=== PATIENT | male | born 1975 | race Caucasian/White ===

== ENCOUNTER 2018-04-07 18:29 | Emergency (ER) | payer SELFPAY ==
[~2018-04-07] VITALS: Ht 172.7 cm; Wt 68.0 kg
[2018-04-07 18:32] VITALS: BP 110/74
== END 2018-04-07 19:04 | disposition left against medical advice (07) ==
LOC: ER 18:29
DX: Z53.21 Procedure and treatment not carried out due to patient leaving prior to being seen by health care provider (principal)

== ENCOUNTER 2018-06-02 21:36 | Emergency (ER) | payer MEDICAID | END 2018-06-02 23:04 | disposition left against medical advice (07) | LOC: ER 21:51 | DX: Z53.21 Procedure and treatment not carried out due to patient leaving prior to being seen by health care provider (principal) ==

== ENCOUNTER 2019-01-14 14:21 | Emergency (ER) | payer MEDICAID ==
[~2019-01-14] VITALS: Ht 177.8 cm; Wt 65.0 kg
[2019-01-14 16:57] VITALS: BP 121/84
== END 2019-01-14 17:17 | disposition home or self-care (01) ==
LOC: ER 14:21
DX: S97.82XA Crushing injury of left foot, initial encounter (principal); X58.XXXA Exposure to other specified factors, initial encounter; Y93.89 Activity, other specified; Y92.89 Other specified places as the place of occurrence of the external cause; Y99.8 Other external cause status
CPT/HCPCS: 73630; 99283

== ENCOUNTER 2019-03-06 09:04 | Emergency (ER) | payer SELFPAY ==
[~2019-03-06] VITALS: Ht 180.3 cm; Wt 66.0 kg
[2019-03-06] MEDS ORDERED: IBUPROFEN 400MG TABLET PO ONE (10:15)
[2019-03-06] MEDS ORDERED: ACETAMINOPHEN 325MG TABLET PO ONE (10:30)
[2019-03-06] MEDS ORDERED: TRAMADOL 50MG TABLET PO ONE (10:30)
[2019-03-06 11:28] VITALS: BP 111/68
== END 2019-03-06 11:29 | disposition home or self-care (01) ==
LOC: ER 09:48
DX: S29.9XXA Unspecified injury of thorax, initial encounter (principal); K76.9 Liver disease, unspecified; F17.200 Nicotine dependence, unspecified, uncomplicated; W18.39XA Other fall on same level, initial encounter; Y93.89 Activity, other specified; Y92.89 Other specified places as the place of occurrence of the external cause; Y99.8 Other external cause status
CPT/HCPCS: 71045; 99283

== ENCOUNTER 2019-08-09 14:51 | Emergency (ER) | payer MEDICAID ==
[~2019-08-09] VITALS: Ht 172.7 cm; Wt 66.0 kg
[2019-08-09 15:35] VITALS: BP 119/75
== END 2019-08-09 15:36 | disposition home or self-care (01) ==
LOC: ER 14:51
DX: S01.81XD Laceration without foreign body of other part of head, subsequent encounter (principal); X58.XXXD Exposure to other specified factors, subsequent encounter
CPT/HCPCS: 99281

== ENCOUNTER 2019-09-24 23:34 | Emergency (ER) | payer MEDICAID ==
[~2019-09-24] VITALS: Ht 180.3 cm; Wt 67.0 kg
[2019-09-24 23:47] VITALS: BP 112/80
[2019-09-25] MEDS ORDERED: AZITHROMYCIN 500 MG TABLET PO ONE (00:45)
[2019-09-25] MEDS ORDERED: CEFTRIAXONE SODIUM 250 MG/VIAL IM ONE (00:45)
[2019-09-25] MEDS ORDERED: LIDOCAINE HCL 1% 20ML VIAL (Pyxis) INJ INFIL ONE (00:45)
[2019-09-25 01:11] LABS: CLARITY URINE CLEAR (CLEAR); COLOR URINE YELLOW (YELLOW); KETONES URINE NEGATIVE (NEGATIVE); LEUKOCYTE ESTERASE URINE TRACE (NEGATIVE); NITRITE URINE NEGATIVE (NEGATIVE); OCCULT BLOOD URINE NEGATIVE (NEGATIVE); PROTEIN URINE NEGATIVE (NEGATIVE); SPECIFIC GRAVITY URINE 1.018 (1.005-1.030); UROBILINOGEN URINE 0.2 E.U./dL (0.2-1.0)
== END 2019-09-25 03:09 | disposition left against medical advice (07) ==
LOC: ER 23:34
DX: N39.0 Urinary tract infection, site not specified (principal); H10.9 Unspecified conjunctivitis; Z98.890 Other specified postprocedural states
CPT/HCPCS: 81003; 99283

== ENCOUNTER 2020-07-12 18:46 | Emergency (ER) | payer SELFPAY ==
[~2020-07-12] VITALS: Ht 180.3 cm; Wt 73.0 kg
[2020-07-12 19:21] VITALS: BP 123/91
[2020-07-12 20:01] LABS: BASOPHILS % 0.9 % (0.0-2.0); EOSINOPHILS % 2.2 % (0.0-5.0); HEMOGLOBIN. 15.8 g/dL (14.0-18.0); LYMPHOCYTES % 25.4 % (20.0-50.0); MEAN CORPUSCULAR HEMOGLOBIN 33.8 pg (28.0-32.0); MEAN CORPUSCULAR VOLUME 98.5 fL (80.0-94.0); MEAN PLATELET VOLUME 7.6 fl (7.4-10.4); MONOCYTES % 14.9 % (2.0-8.0); NEUTROPHILS % 56.6 % (40.0-76.0); PLATELET 174 x1000/uL (130-400); RED BLOOD CELL COUNT 4.67 mill/uL (4.7-6.1); RED CELL DISTRIBUTION WIDTH 16.6 % (11.6-14.6)
[2020-07-12 20:04] LABS: CHLORIDE 108 mEq/L (98-107)
== END 2020-07-12 20:47 | disposition home or self-care (01) ==
LOC: ER 18:46
DX: T75.4XXA Electrocution, initial encounter (principal); F17.290 Nicotine dependence, other tobacco product, uncomplicated; Z98.890 Other specified postprocedural states; W86.1XXA Exposure to industrial wiring, appliances and electrical machinery, initial encounter; Y93.89 Activity, other specified; Y92.89 Other specified places as the place of occurrence of the external cause; Y99.8 Other external cause status
CPT/HCPCS: 36415; 71045; 80053; 83880; 84484; 85025; 93005; 99285; 99406

== ENCOUNTER 2021-01-29 07:35 | Emergency (ER) | payer OTHER ==
[~2021-01-29] VITALS: Ht 177.8 cm; Wt 78.0 kg
[2021-01-29] MEDS ORDERED: FOLIC ACID 1 MG, THIAMINE HCL 100 MG, MVI, ADULT NO.1 10 ML in DEXTROSE 5% WATER 1,000 ML IV ONE (08:30)
[2021-01-29] MEDS ORDERED: SODIUM CHLORIDE 0.9% 1,000 ML IV ONE (08:30)
[2021-01-29] MEDS ORDERED: LORAZEPAM 2MG/ML CPJ IV ONE (08:30)
[2021-01-29 08:44] LABS: EOSINOPHILS % 0.1 % (0.0-5.0); HEMATOCRIT. 42.2 % (42.0-52.0); HEMOGLOBIN. 14.1 g/dL (14.0-18.0); MEAN CORPUSCULAR HEMOGLOBIN 34.3 pg (28.0-32.0); MEAN CORPUSCULAR VOLUME 102.5 fL (80.0-94.0); MEAN PLATELET VOLUME 7.7 fl (7.4-10.4); MONOCYTES % 9.9 % (2.0-8.0); PLATELET 148 x1000/uL (130-400); RED BLOOD CELL COUNT 4.11 mill/uL (4.7-6.1); RED CELL DISTRIBUTION WIDTH 15.1 % (11.6-14.6)
[2021-01-29 08:50] LABS: CHLORIDE 97 mEq/L (98-107)
[2021-01-29 08:54] LABS: ETHANOL BLOOD 25 mg/dL
[2021-01-29] MEDS ORDERED: MAGNESIUM OXIDE 400MG TABLET PO STA (09:27)
[2021-01-29] MEDS ORDERED: POTASSIUM CHLORIDE 20MEQ TABLET SR PO ONE (09:30)
[2021-01-29 10:00] VITALS: BP 133/80
== END 2021-01-29 11:31 | disposition left against medical advice (07) ==
LOC: ER 07:52
DX: R55 Syncope and collapse (principal); E87.6 Hypokalemia; F10.239 Alcohol dependence with withdrawal, unspecified; F10.229 Alcohol dependence with intoxication, unspecified; Z98.890 Other specified postprocedural states; Y90.1 Blood alcohol level of 20-39 mg/100 ml
CPT/HCPCS: 36415; 71045; 80053; 80320; 83735; 83880; 84484; 85025; 93005; 96361; 96365; 96375; 99285; J2060; J3411; J3490; J7030; J7070; G0480

== ENCOUNTER 2021-05-16 14:52 | Emergency (ER) | payer MEDICAID, OTHER ==
[~2021-05-16] VITALS: Ht 180.3 cm; Wt 62.0 kg
[2021-05-16 14:53] VITALS: BP 121/83
[2021-05-16] MEDS ORDERED: MORPHINE SULFATE 4 MG/ML CPJ (NOT FOR IM USE) IV STA (16:33)
[2021-05-16] MEDS ORDERED: ONDANSETRON HCL 4MG/2ML INJ IV STA (16:33)
[2021-05-16] MEDS ORDERED: SODIUM CHLORIDE 0.9% 1,000 ML IV ONE (16:45)
[2021-05-16] MEDS ORDERED: CEFTRIAXONE 1 G PREMIX 50 ML IV ONE (17:00)
[2021-05-16] MEDS ORDERED: SODIUM CHLORIDE 0.9% 1000ML BAG (SEPSIS BOLUS) IV ONE (17:00)
[2021-05-16] MEDS ORDERED: AZITHROMYCIN 500MG/250ML 250 ML IV ONE (17:00)
[2021-05-16 17:20] LABS: BASOPHILS % 0.5 % (0.0-2.0); EOSINOPHILS % 1.4 % (0.0-5.0); HEMATOCRIT. 41.4 % (42.0-52.0); LYMPHOCYTES % 19.3 % (20.0-50.0); MEAN CORPUSCULAR HEMOGLOBIN 35.1 pg (28.0-32.0); MEAN CORPUSCULAR VOLUME 104.1 fL (80.0-94.0); MEAN PLATELET VOLUME 7.4 fl (7.4-10.4); MONOCYTES % 9.4 % (2.0-8.0); NEUTROPHILS % 69.4 % (40.0-76.0); PLATELET 312 x1000/uL (130-400); RED BLOOD CELL COUNT 3.98 mill/uL (4.7-6.1)
[2021-05-16 17:24] LABS: CHLORIDE 100 mEq/L (98-107)
[2021-05-16 17:28] LABS: D-DIMER 0.44 mg/L FEU (<0.50); PARTIAL THROMBOPLASTIN TIME 31.8 sec (23.4-31.0); PROTHROMBIN TIME 10.9 sec (9.6-11.0)
[2021-05-16 17:29] LABS: ETHANOL BLOOD 182 mg/dL
== END 2021-05-16 20:10 | disposition left against medical advice (07) ==
LOC: ER 14:52 → CANBEDREQ 21:11
DX: R07.89 Other chest pain (principal); E87.6 Hypokalemia; R10.13 Epigastric pain; F17.290 Nicotine dependence, other tobacco product, uncomplicated; Z98.890 Other specified postprocedural states
CPT/HCPCS: 36415; 70450; 71045; 74176; 80053; 80320; 83605; 83690; 83880; 84484; 85025; 85379; 85610; 85730; 87040; 93005; 99285; J7030; G0480

== ENCOUNTER 2021-05-17 11:32 | Emergency (ER) | payer MEDICAID ==
[~2021-05-17] VITALS: Ht 180.3 cm; Wt 62.0 kg
[2021-05-17 12:42] LABS: BASOPHILS % 0.6 % (0.0-2.0); EOSINOPHILS % 0.6 % (0.0-5.0); HEMATOCRIT. 38.7 % (42.0-52.0); HEMOGLOBIN. 13.7 g/dL (14.0-18.0); LYMPHOCYTES % 13.6 % (20.0-50.0); MEAN CORPUSCULAR HEMOGLOBIN 36.7 pg (28.0-32.0); MEAN CORPUSCULAR VOLUME 103.5 fL (80.0-94.0); MEAN PLATELET VOLUME 7.7 fl (7.4-10.4); MONOCYTES % 7.1 % (2.0-8.0); NEUTROPHILS % 78.1 % (40.0-76.0); PLATELET 246 x1000/uL (130-400); RED BLOOD CELL COUNT 3.74 mill/uL (4.7-6.1); RED CELL DISTRIBUTION WIDTH 17.1 % (11.6-14.6)
[2021-05-17 12:46] LABS: CHLORIDE 104 mEq/L (98-107)
[2021-05-17 12:51] LABS: ETHANOL BLOOD 119 mg/dL
[2021-05-17] MEDS ORDERED: CHLORDIAZEPOXIDE 25MG CAPSULE PO ONE (13:00)
[2021-05-17] MEDS ORDERED: POTASSIUM CHLORIDE 20MEQ TABLET SR PO ONE (13:00)
[2021-05-17] MEDS ORDERED: IBUPROFEN 200MG TABLET PO ONE (13:30)
[2021-05-17 14:00] VITALS: BP 124/84
== END 2021-05-17 15:16 | disposition home or self-care (01) ==
LOC: ER 11:32
DX: R07.89 Other chest pain (principal); E87.6 Hypokalemia; Z98.890 Other specified postprocedural states; Z86.59 Personal history of other mental and behavioral disorders
CPT/HCPCS: 36415; 71045; 80053; 80320; 84484; 85025; 93005; 99285; G0480

== ENCOUNTER 2021-06-08 18:08 | Emergency (ER) | payer MEDICAID ==
[~2021-06-08] VITALS: Ht 180.3 cm; Wt 63.8 kg
[2021-06-08 18:21] VITALS: BP 121/88
[2021-06-08 20:06] LABS: BASOPHILS % 0.8 % (0.0-2.0); EOSINOPHILS % 1.5 % (0.0-5.0); HEMOGLOBIN. 14.9 g/dL (14.0-18.0); LYMPHOCYTES % 27.9 % (20.0-50.0); MEAN CORPUSCULAR HEMOGLOBIN 36.6 pg (28.0-32.0); MEAN CORPUSCULAR VOLUME 105.8 fL (80.0-94.0); MEAN PLATELET VOLUME 7.7 fl (7.4-10.4); MONOCYTES % 10.1 % (2.0-8.0); NEUTROPHILS % 59.7 % (40.0-76.0); PLATELET 218 x1000/uL (130-400); RED BLOOD CELL COUNT 4.06 mill/uL (4.7-6.1); RED CELL DISTRIBUTION WIDTH 17.2 % (11.6-14.6)
[2021-06-08 20:15] LABS: CHLORIDE 105 mEq/L (98-107)
[2021-06-08 21:13] LABS: ETHANOL BLOOD 304 mg/dL
== END 2021-06-08 21:00 | disposition left against medical advice (07) ==
LOC: ER 18:14
DX: Z53.21 Procedure and treatment not carried out due to patient leaving prior to being seen by health care provider (principal); R07.89 Other chest pain; M79.602 Pain in left arm
CPT/HCPCS: 36415; 71045; 80053; 80320; 83880; 84484; 85025; 93005; 99285; G0480

== ENCOUNTER 2021-06-21 12:10 | Emergency (ER) | payer MEDICAID ==
[~2021-06-21] VITALS: Ht 180.3 cm; Wt 73.0 kg
[2021-06-21] MEDS ORDERED: MORPHINE SULFATE 4 MG/ML CPJ (NOT FOR IM USE) IV ONE (14:00)
[2021-06-21 14:10] LABS: BASOPHILS % 0.8 % (0.0-2.0); EOSINOPHILS % 0.5 % (0.0-5.0); HEMOGLOBIN. 15.5 g/dL (14.0-18.0); LYMPHOCYTES % 31.2 % (20.0-50.0); MEAN CORPUSCULAR HEMOGLOBIN 36.2 pg (28.0-32.0); MEAN CORPUSCULAR VOLUME 105.1 fL (80.0-94.0); MONOCYTES % 10.7 % (2.0-8.0); NEUTROPHILS % 56.8 % (40.0-76.0); PLATELET 139 x1000/uL (130-400); RED BLOOD CELL COUNT 4.28 mill/uL (4.7-6.1); RED CELL DISTRIBUTION WIDTH 15.8 % (11.6-14.6)
[2021-06-21] MEDS ORDERED: FOLIC ACID 1 MG, THIAMINE HCL 100 MG, MVI, ADULT NO.1 10 ML in DEXTROSE 5% WATER 1,000 ML IV ONE ×4 (14:15)
[2021-06-21 14:17] LABS: CHLORIDE 99 mEq/L (98-107)
[2021-06-21 14:26] LABS: CREATINE KINASE 74 IU/L (39-308)
[2021-06-21 14:38] LABS: ETHANOL BLOOD 374 mg/dL
[2021-06-21] MEDS ORDERED: POTASSIUM CHLORIDE 20MEQ TABLET SR PO NR (15:30)
[2021-06-21] MEDS ORDERED: ONDA4TAB5 MT (15:33)
[2021-06-21] MEDS ORDERED: THIA50TA12 MT (15:33)
[2021-06-21] MEDS ORDERED: IBUP-2029 MT (15:33)
[2021-06-21] MEDS ORDERED: POTA20TA82 MT (15:33)
[2021-06-21] MEDS ORDERED: KETOROLAC 15MG/ML VIAL IV ONE (16:30)
[2021-06-21] MEDS ORDERED: ASPIRIN 325MG EC TABLET PO NR (16:30)
[2021-06-21 18:45] VITALS: BP 142/97
== END 2021-06-21 19:40 | disposition home or self-care (01) ==
LOC: ER 12:10
DX: F10.129 Alcohol abuse with intoxication, unspecified (principal); F17.290 Nicotine dependence, other tobacco product, uncomplicated; E87.6 Hypokalemia; R74.01 Elevation of levels of liver transaminase levels; Z98.890 Other specified postprocedural states; Z86.59 Personal history of other mental and behavioral disorders; Y90.8 Blood alcohol level of 240 mg/100 ml or more
CPT/HCPCS: 36415; 70450; 71045; 80053; 80307; 80320; 80329; 82140; 82550; 83690; 84484; 85025; 93005; 93970; 96365; 96375; 99285; 99406; J1885; J2270; J3411; J3490; J7070; G0480

== ENCOUNTER 2021-06-26 12:04 | Emergency (ER) | payer MEDICAID ==
[~2021-06-26] VITALS: Ht 172.7 cm; Wt 70.0 kg
[~2021-06-26 12:04] MED LIST: IBUP-2029 MT; ONDA4TAB5 MT; POTA20TA82 MT; THIA50TA12 MT
[2021-06-26 12:15] VITALS: BP 105/74
[2021-06-26] MEDS ORDERED: SODIUM CHLORIDE 0.9% 1,000 ML IV ONE (12:30)
== END 2021-06-26 15:34 | disposition left against medical advice (07) ==
LOC: ER 12:04
DX: M79.18 Myalgia, other site (principal); R53.1 Weakness; R00.0 Tachycardia, unspecified
CPT/HCPCS: 93005; 99283; J7030

== ENCOUNTER 2021-06-27 12:21 | Emergency (ER) | payer MEDICAID ==
[~2021-06-27] VITALS: Ht 175.3 cm; Wt 77.0 kg
[2021-06-27 12:27] VITALS: BP 116/67
[2021-06-27] MEDS ORDERED: SODIUM CHLORIDE 0.9% 1,000 ML IV ONE (13:30)
[2021-06-27 13:49] LABS: BASOPHILS % 0.6 % (0.0-2.0); EOSINOPHILS % 0.2 % (0.0-5.0); HEMATOCRIT. 38.1 % (42.0-52.0); HEMOGLOBIN. 13.3 g/dL (14.0-18.0); LYMPHOCYTES % 20.9 % (20.0-50.0); MEAN CORPUSCULAR HEMOGLOBIN 36.5 pg (28.0-32.0); MEAN CORPUSCULAR VOLUME 104.8 fL (80.0-94.0); MEAN PLATELET VOLUME 7.7 fl (7.4-10.4); MONOCYTES % 11.6 % (2.0-8.0); NEUTROPHILS % 66.7 % (40.0-76.0); PLATELET 83 x1000/uL (130-400); RED BLOOD CELL COUNT 3.63 mill/uL (4.7-6.1); RED CELL DISTRIBUTION WIDTH 15.9 % (11.6-14.6)
[2021-06-27 13:55] LABS: CHLORIDE 107 mEq/L (98-107)
[2021-06-27 14:09] LABS: ETHANOL BLOOD 369 mg/dL
[2021-06-27] MEDS ORDERED: KETOROLAC 30MG/ML VIAL IM ONE (14:15)
[2021-06-27] MEDS ORDERED: POTASSIUM-SODIUM PHOSPHATE POWDER PACKET PO ONE (15:00)
== END 2021-06-27 15:09 | disposition left against medical advice (07) ==
LOC: ER 12:21
DX: F10.229 Alcohol dependence with intoxication, unspecified (principal); D69.6 Thrombocytopenia, unspecified; E87.6 Hypokalemia; Y90.8 Blood alcohol level of 240 mg/100 ml or more; G40.909 Epilepsy, unspecified, not intractable, without status epilepticus
CPT/HCPCS: 36415; 80053; 80320; 84484; 85025; 93005; 96360; 99284; J7030; Z7610; G0480

== ENCOUNTER 2021-06-27 21:00 | Emergency (ER) | payer MEDICAID ==
[~2021-06-27] VITALS: Ht 180.3 cm; Wt 64.0 kg
[2021-06-27 23:45] LABS: BASOPHILS % 0.6 % (0.0-2.0); EOSINOPHILS % 0.6 % (0.0-5.0); HEMOGLOBIN. 12.8 g/dL (14.0-18.0); LYMPHOCYTES % 33.5 % (20.0-50.0); MEAN CORPUSCULAR HEMOGLOBIN 36.5 pg (28.0-32.0); MEAN CORPUSCULAR VOLUME 105.7 fL (80.0-94.0); MEAN PLATELET VOLUME 8.4 fl (7.4-10.4); MONOCYTES % 14.8 % (2.0-8.0); NEUTROPHILS % 50.5 % (40.0-76.0); PLATELET 79 x1000/uL (130-400); RED CELL DISTRIBUTION WIDTH 15.8 % (11.6-14.6)
[2021-06-27 23:53] LABS: CHLORIDE 105 mEq/L (98-107)
[2021-06-28] MEDS ORDERED: FOLIC ACID 1 MG, THIAMINE HCL 100 MG, MVI, ADULT NO.1 10 ML in DEXTROSE 5% WATER 1,000 ML IV ONE ×4 (00:30)
[2021-06-28] MEDS ORDERED: POTASSIUM CHLORIDE 20MEQ TABLET SR PO SCH (00:30)
[2021-06-28] MEDS ORDERED: IBUPROFEN 400MG TABLET PO SCH (00:30)
[2021-06-28] MEDS ORDERED: ACETAMINOPHEN 325MG TABLET PO SCH (00:30)
[2021-06-28] MEDS ORDERED: MAGNESIUM 2 G PREMIX 50 ML IV SCH (01:00)
[2021-06-28] MEDS ORDERED: FOLIC ACID 1 MG, THIAMINE HCL 100 MG, MVI, ADULT NO.1 10 ML in DEXTROSE 5% WATER 1,000 ML IV SCH ×4 (02:00)
[2021-06-28] MEDS: KCL 20MEQ/100ML PREMIX 100 ML IV SCH ×2 (02:58→03:13)
[2021-06-28 04:00] VITALS: BP 138/98
[2021-06-29] MEDS ORDERED: MELO-104 MT (12:31)
[2021-07-01] MEDS ORDERED: POTASSIUM CHLORIDE 20MEQ TABLET SR PO NR (23:00)
== END 2021-06-28 04:59 | disposition home or self-care (01) ==
LOC: ER 21:00
DX: E87.6 Hypokalemia (principal); D64.9 Anemia, unspecified; H53.8 Other visual disturbances
CPT/HCPCS: 36415; 71045; 73610; 80053; 84484; 85025; 96365; 96367; 96368; 99285; J3411; J3475; J3480; J3490; J7070

== ENCOUNTER 2021-06-29 11:55 | Emergency (ER) | payer MEDICAID ==
[~2021-06-29] VITALS: Ht 180.3 cm; Wt 61.0 kg
[2021-06-29 11:58] VITALS: BP 100/71
[2021-06-29] MEDS ORDERED: MELOXICAM 7.5MG TABLET PO ONE (12:30)
[2021-06-29] MEDS ORDERED: MELO-104 MT (12:31)
== END 2021-06-29 12:42 | disposition home or self-care (01) ==
LOC: ER 12:10
DX: G89.29 Other chronic pain (principal); M79.605 Pain in left leg; M79.604 Pain in right leg
CPT/HCPCS: 99283

== ENCOUNTER 2021-06-30 14:32 | Emergency (ER) | payer MEDICAID ==
[~2021-06-30] VITALS: Ht 175.3 cm; Wt 69.0 kg
[~2021-06-30 14:32] MED LIST changes: +MELO-104 MT
[2021-06-30] MEDS ORDERED: IBUPROFEN 600MG TABLET PO STA (14:46)
[2021-06-30 15:40] VITALS: BP 110/65
== END 2021-06-30 16:16 | disposition left against medical advice (07) ==
LOC: ER 14:38
DX: R53.1 Weakness (principal); R42 Dizziness and giddiness; F10.229 Alcohol dependence with intoxication, unspecified; Y90.0 Blood alcohol level of less than 20 mg/100 ml
CPT/HCPCS: 93005; 99283

== ENCOUNTER 2021-07-01 14:57 | Emergency (ER) | payer MEDICAID ==
[~2021-07-01] VITALS: Ht 180.3 cm; Wt 66.0 kg
[2021-07-01 15:07] VITALS: BP 114/77
[2021-07-01 15:35] LABS: BASOPHILS % 0.5 % (0.0-2.0); EOSINOPHILS % 0.3 % (0.0-5.0); HEMATOCRIT. 38.5 % (42.0-52.0); HEMOGLOBIN. 13.4 g/dL (14.0-18.0); LYMPHOCYTES % 20.7 % (20.0-50.0); MEAN CORPUSCULAR HEMOGLOBIN 36.9 pg (28.0-32.0); MEAN CORPUSCULAR VOLUME 106.1 fL (80.0-94.0); NEUTROPHILS % 66.5 % (40.0-76.0); PLATELET 96 x1000/uL (130-400); RED BLOOD CELL COUNT 3.63 mill/uL (4.7-6.1); RED CELL DISTRIBUTION WIDTH 15.6 % (11.6-14.6)
[2021-07-01 15:44] LABS: CHLORIDE 102 mEq/L (98-107)
[2021-07-01] MEDS ORDERED: MAGNESIUM 2 G PREMIX 50 ML IV ONE (16:00)
[2021-07-01] MEDS ORDERED: POTASSIUM CHLORIDE 20MEQ TABLET SR PO ONE (16:00)
[2021-07-01] MEDS ORDERED: KCL 10MEQ/50ML PREMIX 100 ML IV SCH (16:00)
[2021-07-01] MEDS ORDERED: KCL 20MEQ/100ML PREMIX 100 ML IV NR (16:30)
== END 2021-07-01 19:02 | disposition left against medical advice (07) ==
LOC: ER 14:57
DX: G89.29 Other chronic pain (principal); M79.605 Pain in left leg; M79.604 Pain in right leg; E87.6 Hypokalemia; D69.6 Thrombocytopenia, unspecified; R74.01 Elevation of levels of liver transaminase levels; F10.20 Alcohol dependence, uncomplicated; Y90.9 Presence of alcohol in blood, level not specified; D64.9 Anemia, unspecified
CPT/HCPCS: 36415; 80053; 85025; 93005; 99284; J3480

== ENCOUNTER 2021-07-01 22:24 | Emergency (ER) | payer MEDICAID ==
[~2021-07-01] VITALS: Ht 177.8 cm; Wt 77.0 kg
[2021-07-01 22:28] VITALS: BP 110/70
== END 2021-07-02 01:33 | disposition left against medical advice (07) ==
LOC: ER 22:24
DX: M79.604 Pain in right leg (principal); M79.605 Pain in left leg; F10.229 Alcohol dependence with intoxication, unspecified; Y90.0 Blood alcohol level of less than 20 mg/100 ml
CPT/HCPCS: 99283

== ENCOUNTER 2021-07-06 15:55 | Emergency (ER) | payer MEDICAID | END 2021-07-06 16:35 | disposition left against medical advice (07) | LOC: ER 15:59 | DX: Z53.21 Procedure and treatment not carried out due to patient leaving prior to being seen by health care provider (principal) ==

== ENCOUNTER 2021-07-18 01:15 | Emergency (ER) | payer MEDICAID ==
[~2021-07-18] VITALS: Ht 182.9 cm; Wt 66.0 kg
[2021-07-18 01:19] VITALS: BP 129/93
== END 2021-07-18 03:42 | disposition left against medical advice (07) ==
LOC: ER 01:15
DX: Z53.21 Procedure and treatment not carried out due to patient leaving prior to being seen by health care provider (principal)

== ENCOUNTER 2021-08-18 23:33 | Emergency (ER) | payer MEDICAID ==
[~2021-08-18] VITALS: Ht 177.8 cm; Wt 68.0 kg
[~2021-08-18 23:33] MED LIST changes: +ACET650T37 PO; +FOLI-43 PO; +FURO20TA4 PO; +GABA-532 PO; +HYDR-4009 MT; +LACT10SO7 PO; +PANT40TA51 PO; +PRED15SO23 PO; +SPIR25TA6 PO; +THIA100T88 PO
[2021-08-19] MEDS ORDERED: SODIUM CHLORIDE 0.9% 1000ML BAG (SEPSIS BOLUS) IV ONE
[2021-08-19 00:16] LABS: BASOPHILS % 0.4 % (0.0-2.0); EOSINOPHILS % 0.2 % (0.0-5.0); HEMOGLOBIN. 9.6 g/dL (14.0-18.0); LYMPHOCYTES % 12.1 % (20.0-50.0); MEAN CORPUSCULAR HEMOGLOBIN 36.6 pg (28.0-32.0); MEAN CORPUSCULAR VOLUME 110.5 fL (80.0-94.0); MEAN PLATELET VOLUME 10.1 fl (7.4-10.4); MONOCYTES % 7.3 % (2.0-8.0); PLATELET 181 x1000/uL (130-400); RED BLOOD CELL COUNT 2.62 mill/uL (4.7-6.1); RED CELL DISTRIBUTION WIDTH 17.4 % (11.6-14.6)
[2021-08-19 00:31] LABS: CHLORIDE 105 mEq/L (98-107)
[2021-08-19] MEDS ORDERED: PIPERACILLIN/TAZ 3.375G PREMIX 50 ML IV ONE (02:00)
[2021-08-19] MEDS ORDERED: MORPHINE SULFATE 4 MG/ML CPJ (NOT FOR IM USE) IV ONE (02:00)
[2021-08-19] MEDS ORDERED: DOXY100T2 MT (02:24)
[2021-08-19 03:10] VITALS: BP 121/78
== END 2021-08-19 03:15 | disposition home or self-care (01) ==
LOC: ER 23:33
DX: J18.9 Pneumonia, unspecified organism (principal); K70.30 Alcoholic cirrhosis of liver without ascites; Z20.822 Contact with and (suspected) exposure to COVID-19; F10.21 Alcohol dependence, in remission; I10 Essential (primary) hypertension; E78.00 Pure hypercholesterolemia, unspecified; Z79.899 Other long term (current) drug therapy
CPT/HCPCS: 36415; 71045; 80053; 83605; 83615; 84145; 84484; 85025; 87040; 87426; 87804; 93005; 96361; 96365; 96375; 99285; C9803; J2270; J2543; J7030

== ENCOUNTER 2021-08-26 20:19 | Inpatient (IN) | payer MEDICAID ==
[~2021-08-26] VITALS: Ht 180.3 cm; Wt 65.0 kg
[~2021-08-26 20:19] MED LIST changes: +ACET-3163 PO; -ACET650T37 PO; +DOXY100T2 MT; +POTA-205 MT; -POTA20TA82 MT
[2021-08-26] MEDS ORDERED: KETOROLAC 30MG/ML VIAL IV STA (22:22)
[2021-08-26 22:43] LABS: BASOPHILS % 0.2 % (0.0-2.0); EOSINOPHILS % 0.5 % (0.0-5.0); HEMOGLOBIN. 10.1 g/dL (14.0-18.0); LYMPHOCYTES % 15.9 % (20.0-50.0); MEAN CORPUSCULAR HEMOGLOBIN 35.5 pg (28.0-32.0); MEAN CORPUSCULAR VOLUME 109.2 fL (80.0-94.0); MEAN PLATELET VOLUME 9.8 fl (7.4-10.4); MONOCYTES % 8.7 % (2.0-8.0); NEUTROPHILS % 74.7 % (40.0-76.0); PLATELET 353 x1000/uL (130-400); RED BLOOD CELL COUNT 2.84 mill/uL (4.7-6.1); RED CELL DISTRIBUTION WIDTH 17.5 % (11.6-14.6)
[2021-08-26 22:46] LABS: CHLORIDE 111 mEq/L (98-107)
[2021-08-26 22:50] LABS: INR 1.8
[2021-08-26 22:57] LABS: ETHANOL BLOOD < 10 mg/dL
[2021-08-27] MEDS ORDERED: CEFTRIAXONE 1 G PREMIX 50 ML IV SCH
[2021-08-27 01:43] LABS: CLARITY URINE CLEAR (CLEAR); COLOR URINE DARK YELLOW (YELLOW); KETONES URINE NEGATIVE (NEGATIVE); LEUKOCYTE ESTERASE URINE 1+ (NEGATIVE); NITRITE URINE NEGATIVE (NEGATIVE); OCCULT BLOOD URINE NEGATIVE (NEGATIVE); PH URINE 5.5 (4.5-8.0); PROTEIN URINE 1+ (NEGATIVE); SPECIFIC GRAVITY URINE 1.021 (1.005-1.030); UROBILINOGEN URINE 0.2 E.U./dL (0.2-1.0)
[2021-08-27 02:00] LABS: *AMPHETAMINES SCREEN URINE NEGATIVE (NEGATIVE); *BARBITURATES SCREEN URINE NEGATIVE (NEGATIVE); *BENZODIAZEPINES SCREEN URINE NEGATIVE (NEGATIVE); *COCAINE SCREEN URINE NEGATIVE (NEGATIVE); CANNABINOID URINE SCREEN NEGATIVE (NEGATIVE); METHADONE URINE SCREEN NEGATIVE (NEGATIVE); OPIATES URINE SCREEN NEGATIVE (NEGATIVE); PHENCYCLIDINE URINE SCREEN NEGATIVE (NEGATIVE)
[2021-08-27] MEDS ORDERED: AZITHROMYCIN 500 MG in DEXT 5% WATER 250 ML IV SCH (05:45)
[2021-08-27] MEDS ORDERED: AZITHROMYCIN 500MG/250ML 250 ML IV SCH (06:30)
[2021-08-27] MEDS ORDERED: DIPHENHYDRAMINE 50MG/ML VIAL IV PRN (09:45)
[2021-08-27] MEDS ORDERED: IPRATROPIUM/ALBUTEROL 0.5-3(2.5)MG/3ML NEB HHN PRN (09:45)
[2021-08-27] MEDS ORDERED: ONDANSETRON HCL 4MG/2ML INJ IV PRN (09:45)
[2021-08-27] MEDS ORDERED: CLONIDINE 0.1MG TABLET PO PRN (09:45)
[2021-08-27] MEDS ORDERED: NALOXONE HCL 0.4MG/ML VIAL IV PRN (09:45)
[2021-08-27 10:00] VITALS: BP 105/73
[2021-08-27] MEDS ORDERED: KCL 20MEQ/100ML PREMIX 100 ML IV SCH (10:00)
[2021-08-27] MEDS: KCL 20MEQ/100ML PREMIX 100 ML IV SCH ×2 (12:13→14:55)
[2021-08-27 12:30] VITALS: BP 114/71
[2021-08-27] MEDS: MORPHINE SULFATE 2 MG/ML CPJ (NOT FOR IM USE) IV PRN ×2 (13:26→21:09)
[2021-08-27 16:30] VITALS: BP 103/71
[2021-08-27] MEDS ORDERED: PHYTONADIONE 10MG/ML AMP SUBCUT NR (22:30)
[2021-08-28] MEDS: MORPHINE SULFATE 2 MG/ML CPJ (NOT FOR IM USE) IV PRN ×5 (02:52→22:32)
[2021-08-28] MEDS ORDERED: AZITHROMYCIN 500 MG in DEXT 5% WATER 250 ML IV SCH (06:00)
[2021-08-28 08:00] VITALS: BP 99/62
[2021-08-28 10:46] LABS: HEMATOCRIT. 28.2 % (42.0-52.0); HEMOGLOBIN. 9.2 g/dL (14.0-18.0); MEAN CORPUSCULAR HEMOGLOBIN 35.3 pg (28.0-32.0); MEAN CORPUSCULAR VOLUME 107.6 fL (80.0-94.0); MEAN PLATELET VOLUME 9.1 fl (7.4-10.4); PLATELET 296 x1000/uL (130-400); RED BLOOD CELL COUNT 2.62 mill/uL (4.7-6.1); RED CELL DISTRIBUTION WIDTH 17.3 % (11.6-14.6)
[2021-08-28 10:55] LABS: CHLORIDE 110 mEq/L (98-107)
[2021-08-28 10:56] LABS: INR 1.6; PROTHROMBIN TIME 16.7 sec (9.6-11.0)
[2021-08-28 11:41] VITALS: BP 108/74
[2021-08-28 12:00] VITALS: BP 99/67
[2021-08-28 16:00] VITALS: BP 91/53
[2021-08-28] MEDS ORDERED: POTASSIUM CHLORIDE 20MEQ TABLET SR PO NR (17:00)
[2021-08-28 20:00] VITALS: BP 104/64
[2021-08-29] VITALS: BP 105/73
[2021-08-29] MEDS: MORPHINE SULFATE 2 MG/ML CPJ (NOT FOR IM USE) IV PRN ×3 (03:03→13:43)
[2021-08-29] MEDS ORDERED: AZITHROMYCIN 500 MG in DEXT 5% WATER 250 ML IV SCH (06:00)
[2021-08-29] MEDS ORDERED: LIDOCAINE HCL/PF 1% 10 MG/ML 5ML VIAL ONE (07:20)
[2021-08-29] MEDS ORDERED: SODIUM BICARBONATE 4% (2.4MEQ) 5ML VIAL IV ONE (07:20)
[2021-08-29 07:50] LABS: PLATELET ESTIMATE NORMAL
[2021-08-29 07:57] LABS: HEMATOCRIT. 28.6 % (42.0-52.0); HEMOGLOBIN. 9.6 g/dL (14.0-18.0); MEAN CORPUSCULAR HEMOGLOBIN 35.8 pg (28.0-32.0); MEAN CORPUSCULAR VOLUME 106.7 fL (80.0-94.0); MEAN PLATELET VOLUME 9.3 fl (7.4-10.4); PLATELET 284 x1000/uL (130-400); RED BLOOD CELL COUNT 2.68 mill/uL (4.7-6.1); RED CELL DISTRIBUTION WIDTH 17.6 % (11.6-14.6)
[2021-08-29 08:05] LABS: CHLORIDE 107 mEq/L (98-107)
[2021-08-29 09:00] VITALS: BP 102/68
[2021-08-29 12:00] VITALS: BP 132/82
[2021-08-29] MEDS ORDERED: AZIT500T8 MT (13:25)
[2021-08-29] MEDS ORDERED: ACET-3163 MT (13:25)
[2021-08-29 14:21] VITALS: BP 132/82
[2021-08-29 16:40] LABS: PLATELET ESTIMATE NORMAL
== END 2021-08-29 14:45 | disposition home or self-care (01) | DRG 280 ==
LOC: ER 20:19 → 8WST 08-27 02:12 → 6EST 08-28 11:41
PROVIDERS: ADMIT Internal Medicine; ATTEND Internal Medicine
PROC: 30233K1 Transfusion of Nonautologous Frozen Plasma into Peripheral Vein, Percutaneous Approach (ICD-10-PCS; 2021-08-28)
PROC: 0W9G3ZZ Drainage of Peritoneal Cavity, Percutaneous Approach (ICD-10-PCS; principal; 2021-08-29)
DX: K70.31 Alcoholic cirrhosis of liver with ascites (principal); K72.90 Hepatic failure, unspecified without coma; E43 Unspecified severe protein-calorie malnutrition; E88.09 Other disorders of plasma-protein metabolism, not elsewhere classified; D53.9 Nutritional anemia, unspecified; G89.29 Other chronic pain; F10.21 Alcohol dependence, in remission; F17.200 Nicotine dependence, unspecified, uncomplicated; Z20.822 Contact with and (suspected) exposure to COVID-19; E78.00 Pure hypercholesterolemia, unspecified; I10 Essential (primary) hypertension; M19.90 Unspecified osteoarthritis, unspecified site; Z91.030 Bee allergy status; Z91.018 Allergy to other foods; Z79.2 Long term (current) use of antibiotics; Z79.899 Other long term (current) drug therapy; J98.11 Atelectasis; D72.829 Elevated white blood cell count, unspecified; Z68.20 Body mass index [BMI] 20.0-20.9, adult
CPT/HCPCS: 36415; 49083; 71045; 76705; 80048; 80053; 80076; 80305; 80320; 81003; 82040; 82105; 82248; 84484; 85025; 86301; 86850; 86900; 86927; 87426; 88108; 88312; 93970; 99285; J0456; J0696; J1885; J2270; J3430; J3480; J3490; J7060; P9017; G0480

== ENCOUNTER 2021-08-30 15:34 | Inpatient (IN) | payer MEDICAID ==
[~2021-08-30] VITALS: Ht 180.3 cm; Wt 63.5 kg
[~2021-08-30 15:34] MED LIST changes: +ACET-3163 MT; +AZIT500T8 MT
[2021-08-30 16:50] LABS: BASOPHILS % 0.4 % (0.0-2.0); CHLORIDE 106 mEq/L (98-107); EOSINOPHILS % 0.8 % (0.0-5.0); HEMATOCRIT. 32.9 % (42.0-52.0); HEMOGLOBIN. 10.9 g/dL (14.0-18.0); LYMPHOCYTES % 10.6 % (20.0-50.0); MEAN CORPUSCULAR HEMOGLOBIN 35.2 pg (28.0-32.0); MEAN CORPUSCULAR VOLUME 105.9 fL (80.0-94.0); MEAN PLATELET VOLUME 8.8 fl (7.4-10.4); MONOCYTES % 11.2 % (2.0-8.0); PLATELET 301 x1000/uL (130-400); RED BLOOD CELL COUNT 3.11 mill/uL (4.7-6.1); RED CELL DISTRIBUTION WIDTH 18.1 % (11.6-14.6)
[2021-08-30] MEDS ORDERED: SODIUM CHLORIDE 0.9% 1,000 ML IV ONE (17:30)
[2021-08-30 19:16] LABS: CLARITY URINE CLOUDY (CLEAR); COLOR URINE DARK YELLOW (YELLOW); KETONES URINE NEGATIVE (NEGATIVE); LEUKOCYTE ESTERASE URINE 1+ (NEGATIVE); NITRITE URINE POSITIVE (NEGATIVE); OCCULT BLOOD URINE NEGATIVE (NEGATIVE); PROTEIN URINE 1+ (NEGATIVE); SPECIFIC GRAVITY URINE 1.021 (1.005-1.030); UROBILINOGEN URINE 0.2 E.U./dL (0.2-1.0)
[2021-08-30 21:13] LABS: CHLORIDE 109 mEq/L (98-107)
[2021-08-30] MEDS ORDERED: MORPHINE SULFATE 2 MG/ML CPJ (NOT FOR IM USE) IV NR (21:30)
[2021-08-30] MEDS ORDERED: CEFTRIAXONE 1 G PREMIX 50 ML IV NR (22:00)
[2021-08-31] MEDS ORDERED: CLONIDINE 0.1MG TABLET PO PRN (04:30)
[2021-08-31] MEDS ORDERED: POTASSIUM CHLORIDE 20MEQ TABLET SR PO NR ×2 (04:30→10:15)
[2021-08-31] MEDS ORDERED: HYDROCODONE/ACETAMINOPHEN 5/325MG TABLET PO PRN (04:30)
[2021-08-31] MEDS ORDERED: POTASSIUM CHLORIDE 20MEQ TABLET SR PO ONE (04:30)
[2021-08-31 05:00] VITALS: BP 107/72
[2021-08-31] MEDS: HYDROCODONE/ACETAMINOPHEN 5/325MG TABLET PO PRN ×2 (06:08→14:05)
[2021-08-31 08:00] VITALS: BP 100/70
[2021-08-31] MEDS: MORPHINE SULFATE 2 MG/ML CPJ (NOT FOR IM USE) IV PRN ×3 (10:21→23:30)
[2021-08-31] MEDS: LEVOFLOXACIN 500MG TABLET PO SCH (10:21)
[2021-08-31 11:11] LABS: HEMATOCRIT. 32.6 % (42.0-52.0); HEMOGLOBIN. 10.8 g/dL (14.0-18.0); MEAN CORPUSCULAR HEMOGLOBIN 35.4 pg (28.0-32.0); MEAN CORPUSCULAR VOLUME 107.1 fL (80.0-94.0); MEAN PLATELET VOLUME 8.9 fl (7.4-10.4); PLATELET 309 x1000/uL (130-400); RED BLOOD CELL COUNT 3.04 mill/uL (4.7-6.1); RED CELL DISTRIBUTION WIDTH 17.5 % (11.6-14.6)
[2021-08-31 11:32] LABS: CHLORIDE 107 mEq/L (98-107)
[2021-08-31 12:00] VITALS: BP 90/58
[2021-08-31 12:53] LABS: PLATELET ESTIMATE NORMAL
[2021-08-31 13:27] LABS: HEPATITIS B SURFACE ANTIGEN NEGATIVE
[2021-08-31 16:00] VITALS: BP 108/70
[2021-08-31] MEDS ORDERED: NALOXONE HCL 0.4MG/ML VIAL IV PRN (19:45)
[2021-08-31 20:00] VITALS: BP 104/73
[2021-09-01] VITALS: BP 98/64
[2021-09-01 04:00] VITALS: BP 99/69
[2021-09-01] MEDS: MORPHINE SULFATE 2 MG/ML CPJ (NOT FOR IM USE) IV PRN ×2 (05:39→11:54)
[2021-09-01 08:00] VITALS: BP 113/69
[2021-09-01] MEDS: LEVOFLOXACIN 500MG TABLET PO SCH (08:48)
[2021-09-01 12:00] VITALS: BP 117/62
[2021-09-01] MEDS ORDERED: OXYC-662 MT (12:53)
[2021-09-01 13:39] VITALS: BP 117/62
== END 2021-09-01 13:56 | disposition home or self-care (01) ==
LOC: ER 15:34 → 6EST 08-31 01:24 → ENRESERV 08-31 02:25
PROVIDERS: ADMIT Internal Medicine; ATTEND Internal Medicine
DX: K74.60 Unspecified cirrhosis of liver (principal); K72.90 Hepatic failure, unspecified without coma; E43 Unspecified severe protein-calorie malnutrition; R18.8 Other ascites; D53.9 Nutritional anemia, unspecified; F10.21 Alcohol dependence, in remission; N39.0 Urinary tract infection, site not specified; Z20.822 Contact with and (suspected) exposure to COVID-19; I10 Essential (primary) hypertension; E78.00 Pure hypercholesterolemia, unspecified; D72.829 Elevated white blood cell count, unspecified; R74.01 Elevation of levels of liver transaminase levels; Z79.899 Other long term (current) drug therapy; Z91.030 Bee allergy status; Z98.890 Other specified postprocedural states; Z91.09 Other allergy status, other than to drugs and biological substances
CPT/HCPCS: 36415; 74176; 76705; 80053; 81003; 83735; 85025; 86705; 86709; 86803; 87340; 87426; 99285; J0696; J2270; J7030

== ENCOUNTER 2021-09-06 20:45 | Emergency (ER) | payer MEDICAID ==
[~2021-09-06] VITALS: Ht 182.9 cm; Wt 66.0 kg
[~2021-09-06 20:45] MED LIST changes: -ACET-3163 MT; -ACET-3163 PO; -AZIT500T8 MT; -DOXY100T2 MT; -HYDR-4009 MT; -IBUP-2029 MT; -LACT10SO7 PO; -MELO-104 MT; +OXYC-662 MT; -POTA-205 MT; -PRED15SO23 PO
[2021-09-07] MEDS ORDERED: MORPHINE SULFATE 4 MG/ML CPJ (NOT FOR IM USE) IV ONE (00:30)
[2021-09-07 00:34] LABS: HEMATOCRIT. 32.9 % (42.0-52.0); HEMOGLOBIN. 10.8 g/dL (14.0-18.0); MEAN CORPUSCULAR HEMOGLOBIN 34.6 pg (28.0-32.0); MEAN CORPUSCULAR VOLUME 105.6 fL (80.0-94.0); MEAN PLATELET VOLUME 8.8 fl (7.4-10.4); PLATELET 220 x1000/uL (130-400); RED BLOOD CELL COUNT 3.12 mill/uL (4.7-6.1); RED CELL DISTRIBUTION WIDTH 16.9 % (11.6-14.6)
[2021-09-07 00:41] LABS: CHLORIDE 109 mEq/L (98-107)
[2021-09-07] MEDS ORDERED: CEFTRIAXONE 2 G PREMIX 50 ML IV NR (00:45)
[2021-09-07 00:46] LABS: INR 1.4; PROTHROMBIN TIME 14.6 sec (9.6-11.0)
[2021-09-07] MEDS ORDERED: POTASSIUM CHLORIDE 20MEQ TABLET SR PO NR (01:15)
[2021-09-07 01:39] LABS: CLARITY URINE CLEAR (CLEAR); COLOR URINE DARK YELLOW (YELLOW); KETONES URINE NEGATIVE (NEGATIVE); LEUKOCYTE ESTERASE URINE 1+ (NEGATIVE); NITRITE URINE NEGATIVE (NEGATIVE); OCCULT BLOOD URINE NEGATIVE (NEGATIVE); PH URINE 5.5 (4.5-8.0); PROTEIN URINE 1+ (NEGATIVE)
[2021-09-07] MEDS ORDERED: IOHEXOL-300 100 ML BOTTLE ONE (03:04)
[2021-09-07 04:45] LABS: PLATELET ESTIMATE NORMAL
[2021-09-07] MEDS ORDERED: HYDROCODONE/ACETAMINOPHEN 5/325MG TABLET PO ONE (06:30)
[2021-09-07] MEDS ORDERED: MORPHINE SULFATE 2 MG/ML CPJ (NOT FOR IM USE) IV ONE (11:15)
[2021-09-07 15:27] VITALS: BP 118/80
== END 2021-09-07 15:28 | disposition short-term general hospital (02) ==
LOC: ER 20:45
DX: R10.9 Unspecified abdominal pain (principal); E78.00 Pure hypercholesterolemia, unspecified; I10 Essential (primary) hypertension; Z79.899 Other long term (current) drug therapy
CPT/HCPCS: 36415; 74177; 80053; 81001; 85025; 93005; 96365; 96375; 96376; 99285

== ENCOUNTER 2021-09-20 19:30 | Emergency (ER) | payer MEDICAID ==
[~2021-09-20] VITALS: Ht 167.6 cm; Wt 68.2 kg
[2021-09-20 20:25] VITALS: BP 112/76
[2021-09-20] MEDS ORDERED: VISCOUS LIDOCAINE 2% 15 ML UDC PO STA (21:21)
[2021-09-20] MEDS ORDERED: MAGNESIUM/ALUMINUM HYDROXIDE/SIMETHICONE 30ML UDC PO STA (21:21)
[2021-09-20] MEDS ORDERED: ONDANSETRON HCL 4MG/2ML INJ IV STA (21:21)
[2021-09-20] MEDS ORDERED: PANTOPRAZOLE SODIUM 40 MG/VIAL IV STA (21:21)
[2021-09-20] MEDS ORDERED: SODIUM CHLORIDE 0.9% 1,000 ML IV ONE (21:30)
== END 2021-09-20 21:40 | disposition left against medical advice (07) ==
LOC: ER 19:30
DX: R14.0 Abdominal distension (gaseous) (principal); R18.8 Other ascites; K74.60 Unspecified cirrhosis of liver; E78.00 Pure hypercholesterolemia, unspecified; I10 Essential (primary) hypertension; Z79.899 Other long term (current) drug therapy
CPT/HCPCS: 93005; 99283; J7030

== ENCOUNTER 2021-10-25 21:40 | Emergency (ER) | payer MEDICAID ==
[~2021-10-25] VITALS: Ht 180.3 cm; Wt 70.0 kg
[2021-10-25] MEDS ORDERED: KETOROLAC 15MG/ML VIAL IV ONE (23:30)
[2021-10-25] MEDS ORDERED: MORPHINE SULFATE 4 MG/ML CPJ (NOT FOR IM USE) IV ONE (23:30)
[2021-10-26] MEDS ORDERED: TRAM-529 MT (01:29)
[2021-10-26 01:30] VITALS: BP 123/83
== END 2021-10-26 02:18 | disposition home or self-care (01) ==
LOC: ER 21:40
DX: R10.9 Unspecified abdominal pain (principal); G89.29 Other chronic pain; N18.6 End stage renal disease
CPT/HCPCS: 96374; 96375; 99284; J1885; J2270

== ENCOUNTER 2021-12-24 22:07 | Emergency (ER) | payer MEDICAID ==
[~2021-12-24] VITALS: Ht 180.3 cm; Wt 61.2 kg
[~2021-12-24 22:07] MED LIST changes: +TRAM-529 MT
[2021-12-24 22:16] VITALS: BP 112/75
[2021-12-24 22:54] LABS: BASOPHILS % 0.6 % (0.0-2.0); EOSINOPHILS % 2.2 % (0.0-5.0); HEMOGLOBIN. 9.7 g/dL (14.0-18.0); LYMPHOCYTES % 23.3 % (20.0-50.0); MEAN CORPUSCULAR HEMOGLOBIN 31.2 pg (28.0-32.0); MEAN CORPUSCULAR VOLUME 93.4 fL (80.0-94.0); MEAN PLATELET VOLUME 8.6 fl (7.4-10.4); MONOCYTES % 13.1 % (2.0-8.0); NEUTROPHILS % 60.8 % (40.0-76.0); PLATELET 130 x1000/uL (130-400); RED BLOOD CELL COUNT 3.11 mill/uL (4.7-6.1); RED CELL DISTRIBUTION WIDTH 14.2 % (11.6-14.6)
[2021-12-24 22:56] LABS: CLARITY URINE CLEAR (CLEAR); COLOR URINE YELLOW (YELLOW); KETONES URINE NEGATIVE (NEGATIVE); LEUKOCYTE ESTERASE URINE NEGATIVE (NEGATIVE); NITRITE URINE NEGATIVE (NEGATIVE); OCCULT BLOOD URINE NEGATIVE (NEGATIVE); PH URINE 6.5 (4.5-8.0); PROTEIN URINE NEGATIVE (NEGATIVE); SPECIFIC GRAVITY URINE 1.009 (1.005-1.030)
[2021-12-24 23:22] LABS: *AMPHETAMINES SCREEN URINE NEGATIVE (NEGATIVE); *BARBITURATES SCREEN URINE NEGATIVE (NEGATIVE); *BENZODIAZEPINES SCREEN URINE NEGATIVE (NEGATIVE); *COCAINE SCREEN URINE NEGATIVE (NEGATIVE); CANNABINOID URINE SCREEN NEGATIVE (NEGATIVE); METHADONE URINE SCREEN NEGATIVE (NEGATIVE); OPIATES URINE SCREEN NEGATIVE (NEGATIVE); PHENCYCLIDINE URINE SCREEN NEGATIVE (NEGATIVE)
[2021-12-24 23:23] LABS: CHLORIDE 109 mEq/L (98-107)
[2021-12-24 23:25] LABS: ETHANOL BLOOD 53 mg/dL
[2021-12-24] MEDS ORDERED: LACTULOSE 20G/30ML UDC PO NR (23:45)
[2021-12-24] MEDS ORDERED: HYDROCODONE/ACETAMINOPHEN 5/325MG TABLET PO NR (23:45)
[2021-12-25] MEDS ORDERED: LACTULOSE 20G/30ML UDC PO NR (04:45)
== END 2021-12-25 05:16 | disposition home or self-care (01) ==
LOC: ER 22:07
DX: K70.30 Alcoholic cirrhosis of liver without ascites (principal); Y90.2 Blood alcohol level of 40-59 mg/100 ml; G89.29 Other chronic pain; M79.18 Myalgia, other site; Z76.5 Malingerer [conscious simulation]; K82.8 Other specified diseases of gallbladder; F10.20 Alcohol dependence, uncomplicated; R03.0 Elevated blood-pressure reading, without diagnosis of hypertension; Z71.89 Other specified counseling; Z88.8 Allergy status to other drugs, medicaments and biological substances; Z91.030 Bee allergy status; Z79.899 Other long term (current) drug therapy
CPT/HCPCS: 36415; 74176; 80053; 80305; 80320; 81003; 82140; 85025; 99284; G0480

== ENCOUNTER 2022-02-15 19:34 | Emergency (ER) | payer MEDICAID ==
[~2022-02-15] VITALS: Ht 175.3 cm; Wt 75.0 kg
[2022-02-15 20:00] VITALS: BP 102/56
== END 2022-02-16 00:26 | disposition left against medical advice (07) ==
LOC: ER 21:04
DX: Z53.21 Procedure and treatment not carried out due to patient leaving prior to being seen by health care provider (principal)

== ENCOUNTER 2022-06-13 12:24 | Emergency (ER) | payer MEDICAID ==
[~2022-06-13] VITALS: Ht 177.8 cm; Wt 73.0 kg
[2022-06-13 12:38] VITALS: BP 127/81
== END 2022-06-13 14:51 | disposition home or self-care (01) ==
LOC: ER 13:04
DX: G89.29 Other chronic pain (principal); Z79.899 Other long term (current) drug therapy
CPT/HCPCS: 99283

== ENCOUNTER 2022-10-12 22:11 | Emergency (ER) | payer MEDICAID ==
[~2022-10-12] VITALS: Ht 180.3 cm; Wt 63.4 kg
[2022-10-12 22:46] VITALS: BP 117/72; PULSE 132; RESP 18; TEMP 98.7; O2SAT 97
[2022-10-12 23:36] LABS: BASOPHILS % 0.2 % (0.0-2.0); EOSINOPHILS % 0.6 % (0.0-5.0); HEMOGLOBIN. 11.5 g/dL (14.0-18.0); LYMPHOCYTES % 14.9 % (20.0-50.0); MEAN CORPUSCULAR HEMOGLOBIN 34.2 pg (28.0-32.0); MEAN CORPUSCULAR VOLUME 101.3 fL (80.0-94.0); MEAN PLATELET VOLUME 8.1 fl (7.4-10.4); MONOCYTES % 11.9 % (2.0-8.0); NEUTROPHILS % 72.4 % (40.0-76.0); PLATELET 183 x1000/uL (130-400); RED BLOOD CELL COUNT 3.36 mill/uL (4.7-6.1); RED CELL DISTRIBUTION WIDTH 18.7 % (11.6-14.6)
[2022-10-12 23:43] LABS: CHLORIDE 102 mEq/L (98-107)
[2022-10-13 00:09] LABS: CLARITY URINE CLEAR (CLEAR); COLOR URINE DARK YELLOW (YELLOW); KETONES URINE NEGATIVE (NEGATIVE); LEUKOCYTE ESTERASE URINE NEGATIVE (NEGATIVE); NITRITE URINE NEGATIVE (NEGATIVE); OCCULT BLOOD URINE NEGATIVE (NEGATIVE); PH URINE 6.5 (4.5-8.0); PROTEIN URINE TRACE (NEGATIVE); SPECIFIC GRAVITY URINE 1.007 (1.005-1.030)
== END 2022-10-13 03:15 | disposition left against medical advice (07) ==
LOC: ER 23:13
DX: Z53.21 Procedure and treatment not carried out due to patient leaving prior to being seen by health care provider (principal)
CPT/HCPCS: 36415; 71045; 80053; 81003; 84484; 85025; 93005; 99281